=== PATIENT | female | born 1995 | race Two or more races ===

== ENCOUNTER 2025-10-10 10:29 | Emergency (ER) | payer OTHER ==
[~2025-10-10] VITALS: Ht 154.9 cm; Wt 67.1 kg
[2025-10-10 12:28] LABS: COVID-19 AG NEGATIVE (NEGATIVE)
== END 2025-10-10 13:20 | disposition home or self-care (01) ==
LOC: ER 10:30
PROVIDERS: Emergency Medicine
DX: R50.9 Fever, unspecified (principal); R51.9 Headache, unspecified; R05.8 Other specified cough; J06.9 Acute upper respiratory infection, unspecified; Z20.822 Contact with and (suspected) exposure to COVID-19